=== PATIENT | female | born 1965 | race African-American/Black ===

== ENCOUNTER 2020-04-11 12:50 | Emergency (ER) | payer MEDICAID, MEDICARE ==
--- NOTE | 2020-04-11 13:20 | ER Document Report ---
ED Medical Screen (RME) - General Chief Complaint: Weakness Stated Complaint: WEAKNESS/NEEDS DIALYSIS Time Seen by Provider: 04/11/20 13:15 Primary Care Provider: TEZ BLAKE MD [Primary Care Provider] - Follow up as needed Mode of Arrival: Wheelchair Information source: Patient Notes: 54-year-old female presented to ED for need for dialysis. She states she is from [place] she had her dialysis on Tuesday had a family emergency can get here Tuesday night. She states she had a dialysis center she was supposed to go to but they told her that they cannot take before Tuesday. She states she feels horrible right now she knows she cannot go to Tuesday before she gets another dialysis treatment. She states she is been on dialysis for 18 years. She is alert oriented respirations regular nonlabored. She states she does not want semi-testicular and less they know what they are doing because she does normally be stuck multiple times to get blood work. I have greeted and performed a rapid initial assessment of this patient. A comprehensive ED assessment and evaluation of the patient, analysis of test results and completion of medical decision making process will be conducted by an additional ED providers. TRAVEL OUTSIDE OF THE [place] 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, Hx Hemodialysis Musculoskeltal Medical History: Reports Hx Arthritis Psychiatric Medical History: Reports: Hx Depression Past Surgical History: Reports: Hx Abdominal Surgery, Hx Orthopedic Surgery, Hx Vascular Surgery - fistula - Immunizations Hx Diphtheria, Pertussis, Tetanus Vaccination: Yes Physical Exam - Vital signs Vitals: Temp Pulse Resp BP Pulse Ox 98.8 F 94 20 174/96 H 92 04/11/20 12:58 04/11/20 12:58 04/11/20 12:58 04/11/20 12:58 04/11/20 12:58 Course - Vital Signs Vital signs: Temp Pulse Resp BP Pulse Ox 98.8 F 94 20 174/96 H 92 04/11/20 12:58 04/11/20 12:58 04/11/20 12:58 04/11/20 12:58 04/11/20 12:58 Doctor's Discharge - Discharge Referrals: TEZ BLAKE MD [Primary Care Provider] - Follow up as needed
[2020-04-11 14:04] LABS: ABSOLUTE EOSINOPHILS # (AUTO) 0.3 10^3/uL (0.0-0.6); ABSOLUTE LYMPHOCYTES (AUTO) 0.6 10^3/uL (0.5-4.7); ABSOLUTE MONOCYTES (AUTO) 0.6 10^3/uL (0.1-1.4); ABSOLUTE NEUT (AUTO) 5.6 10^3/uL (1.7-8.2); BASOPHILS % (AUTO) 0.5 % (0-2); EOSINOPHILS % (AUTO) 4.1 % (0-6); HEMATOCRIT 25.8 % (36.0-47.0); HEMOGLOBIN 8.9 g/dL (12.0-15.5); LYMPHOCYTES % (AUTO) 8.2 % (13-45); MEAN CORPUSCULAR HEMOGLOBIN 31.5 pg (27.0-33.4); MEAN CORPUSCULAR HGB CONC 34.5 g/dL (32.0-36.0); MEAN CORPUSCULAR VOLUME 91 fl (80-97); MONOCYTES % (AUTO) 8.6 % (3-13); PLATELET COUNT 184 10^3/uL (150-450); RED BLOOD COUNT 2.83 10^6/uL (3.72-5.28); RED CELL DISTRIBUTION WIDTH 16.8 % (11.5-14.0); SEGMENTED NEUTROPHILS % (AUTO) 78.6 % (42-78); TOTAL CELLS COUNTED % (AUTO) 100 %; WHITE BLOOD COUNT 7.2 10^3/uL (4.0-10.5)
[2020-04-11 14:23] LABS: ALBUMIN 4.2 g/dL (3.5-5.0); ALKALINE PHOSPHATASE 95 U/L (38-126); ANION GAP 14 (5-19); ASPARTATE AMINO TRANSFERASE 16 U/L (14-36); BILIRUBIN,DIRECT 0.5 mg/dL (0.0-0.4); BLOOD UREA NITROGEN 35 mg/dL (7-20); CALCIUM 9.7 mg/dL (8.4-10.2); CARBON DIOXIDE 24 mmol/L (22-30); CHLORIDE 98 mmol/L (98-107); GLUCOSE 101 mg/dL (75-110); POTASSIUM 4.5 mmol/L (3.6-5.0); TOTAL PROTEIN 7.6 g/dL (6.3-8.2)
--- NOTE | 2020-04-11 17:34 | ER Document Report ---
Entered by SIDRA ZAPATA SCRIBE 04/11/20 [id number] Acting as scribe for:ERON CALLOWAY MD ED General - General Chief Complaint: Medical Complaint Stated Complaint: WEAKNESS/NEEDS DIALYSIS Time Seen by Provider: 04/11/20 13:15 Mode of Arrival: Wheelchair Information source: Patient Notes: This 54 year old female patient presents to the emergency department today reque sting to be dialyzed. She reports that she is a M/W/F dialysis patient and she lives in [place], [place], traveling here Tuesday after dialysis for a family emergency. Patient states that her daughter had a CVA and [place] so she came down here to help her. She did not set up dialysis prior to coming down here. She states she has "felt awful since she woke up", stating she has had nausea/vomiting. Patient was asked about how many times she has vomited today and she states "I dont think it matters right now". Patient was uncooperative so obtaining history is difficult. The patient does state that she cannot lay down flat without feeling extremely short of breath. TRAVEL OUTSIDE OF THE [place] IN LAST 30 DAYS: No - Related Data Allergies/Adverse Reactions: acetaminophen [From Percocet] Allergy (Verified 04/11/20 15:46) cefazolin Allergy (Verified 04/11/20 15:44) codeine Allergy (Verified 04/11/20 15:46) morphine Allergy (Verified 04/11/20 15:45) oxycodone [From Percocet] Allergy (Verified 04/11/20 15:46) Penicillins Allergy (Verified 04/11/20 15:45) Past Medical History - General Information source: Patient - Social History Smoking Status: Current Every Day Smoker Family History: Other - mother with epilepsy Patient has homicidal ideation: No - Past Medical History Cardiac Medical History: Reports: Hx DVT - remains on coumadin, Hx Heart Attack, Hx Hypertension Denies: Hx Coronary Artery Disease Pulmonary Medical History: Reports: Hx Asthma Denies: Hx Bronchitis, Hx COPD, Hx Pneumonia Neurological Medical History: Reports: Hx Seizures - DUE TO MEDICATIONS. 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, Hx Hemodialysis Musculoskeletal Medical History: Reports Hx Arthritis Psychiatric Medical History: Reports: Hx Depression Past Surgical History: Reports: Hx Abdominal Surgery, Hx Orthopedic Surgery, Hx Vascular Surgery - fistula - Immunizations Hx Diphtheria, Pertussis, Tetanus Vaccination: Yes Hx Pneumococcal Vaccination: 10/07/15 Physical Exam - Vital signs Vitals: Temp Pulse Resp BP Pulse Ox 98.8 F 94 20 174/96 H 92 04/11/20 12:58 04/11/20 12:58 04/11/20 12:58 04/11/20 12:58 04/11/20 12:58 Interpretation: Hypertensive - HEENT Head: Normocephalic, Atraumatic Eyes: Normal Pupils: PERRL - Respiratory Respiratory status: No respiratory distress Breath sounds: Other - Breath sounds are slightly decreased in the bases, there were some crackles heard on inspiration. - Cardiovascular Rhythm: Regular Heart sounds: Normal auscultation Murmur: No - Abdominal Inspection: Normal Bowel sounds: Normal - Back Back: Normal - Extremities General upper extremity: Normal inspection General lower extremity: Normal inspection. No: Edema - Neurological Neuro grossly intact: Yes - Psychological Associated symptoms: Normal affect, Normal mood - Skin Skin Temperature: Warm Skin Moisture: Dry Skin Color: Normal Course - Re-evaluation Re-evalutation: 04/11/20 17:24 The patient is a Tuesday dialysis patient. She dialyzed on Tuesday. That evening she left [place] to come to [place]. She did not make arrangements with the staff at her dialysis center before leaving [facility]. She states she made some phone calls to them and left it up to them to figure out how she would get her dialysis today. While here in the emergency room, our charge nurse called [facility] and spoke with a nurse there. The nurse there stated she was aware that [facility] not taking [id number] patients. She spoke with [facility] in [place] and was told the patient possibly could be dialyzed on Tuesday, but there was no guarantee that she could be. The patient stated she did speak to [facility] the dialysis nurse who told her to come to the emergency room. The patient's potassium is 4.5 today, she does not have an elevated white blood cell count suggesting an infectious problem. She does not make urine. I spoke with Dr. Patino who tells me that based on the lab work the patient does not need dialysis at this time. Our facility is unable to provide dialysis services over the weekend. The patient should have made arrangements for dialysis before coming down here. Beyond that she could not provide me with any other options. 04/11/20 17:33 I called [facility], they have no beds and their emergency department is full. 04/11/20 18:26 I called [facility], they are on regional diversion and cannot accept the patient. 04/11/20 18:34 I called [facility] and was told they are on regional diversion. They are going to see if she may be able to go to their [facility] in [place], [place]. They will get back in touch with me. 04/11/20 19:12 Dr. O[facility]co [facility] called [facility] and accepted the patient in transfer. - Vital Signs Vital signs: Temp Pulse Resp BP Pulse Ox 98.8 F 94 22 H 158/113 H 100 04/11/20 12:58 04/11/20 12:58 04/11/20 20:44 04/11/20 20:43 04/11/20 20:44 - Laboratory Result Diagrams: 04/11/20 13:27 04/11/20 13:27 Laboratory results interpreted by me: 04/11/20 04/11/20 13:27 13:27 RBC 2.83 L Hgb 8.9 L Hct 25.8 L RDW 16.8 H Lymph % (Auto) 8.2 L Seg Neutrophils % 78.6 H Sodium 136.3 L BUN 35 H Creatinine 8.62 H Est GFR ( Amer) 6 L Est GFR (MDRD) Non-Af 5 L Direct Bilirubin 0.5 H - Diagnostic Test Radiology reviewed: Image reviewed, Reports reviewed - Chest x-ray shows bilateral pleural effusions. Cannot exclude limited airspace disease in the left base. - EKG Interpretation by Me EKG shows normal: Sinus rhythm, Dowell, Intervals, ST-T Waves. abnormal: QRS Complexes - Borderline R wave progression in the anterior leads Rate: Normal - 82 Rhythm: NSR Dowell/QRS: IVCD Heart block present: 1st Degree When compared to previous EKG there are: No significant change - Transfer of Care Care transferred to following provider: Dr. Gifford Notes: 04/11/20 20:47 Patient is pending [facility] to [facility] [place], [place]. Discharge - Discharge Clinical Impression: ESRD (end stage renal disease), Pleural effusion, Missed dialysis Condition: Stable Disposition: Tertiary-Other I personally performed the services described in the documentation, reviewed and edited the documentation which was dictated to the scribe in my presence, and it accurately records my words and actions.
--- NOTE | 2020-04-11 18:28 | RADIOLOGY REPORT (SQ) ---
EXAM DESCRIPTION: CHEST 2 VIEWS IMAGES COMPLETED DATE/TIME: 04/11/2020 6:19 pm REASON FOR STUDY: Dialysis patient, short of breath COMPARISON: 2016 EXAM PARAMETERS: NUMBER OF VIEWS: two views TECHNIQUE: Digital Frontal and Lateral radiographic views of the chest acquired. RADIATION DOSE: NA LIMITATIONS: none FINDINGS: LUNGS AND PLEURA: Moderate right pleural effusion. Small left pleural effusion. There is retrocardiac opacification on the left MEDIASTINUM AND HILAR STRUCTURES: No masses or contour abnormalities. HEART AND VASCULAR STRUCTURES: Heart normal size. No evidence for failure. BONES: No acute findings. HARDWARE: None in the chest. OTHER: No other significant finding. IMPRESSION: Bilateral pleural effusions as described. Cannot exclude limited airspace disease in th e left base, atelectasis versus pneumonia. TECHNICAL DOCUMENTATION: JOB ID: [id number] 2010 [employer]- All Rights Reserved Reading location - IP/workstation name: [email or web address]
[2020-04-11 22:02] VITALS: BP 143/82
--- NOTE | 2020-04-12 09:54 | EKG REPORT ---
SEVERITY:- ABNORMAL ECG - SINUS RHYTHM FIRST DEGREE AV BLOCK NONSPECIFIC IVCD WITH LAD BORDERLINE R WAVE PROGRESSION, ANTERIOR LEADS : Confirmed by: Pretty Ruff 12-Apr-2020 09:54:00
== END 2020-04-11 22:18 | disposition short-term general hospital (02) ==
LOC: ER 12:50
DX: I12.0 Hypertensive chronic kidney disease with stage 5 chronic kidney disease or end stage renal disease (principal); N18.6 End stage renal disease; Z99.2 Dependence on renal dialysis; Z91.15 Patient's noncompliance with renal dialysis; R11.2 Nausea with vomiting, unspecified; I44.0 Atrioventricular block, first degree; F17.200 Nicotine dependence, unspecified, uncomplicated; I25.2 Old myocardial infarction; J45.909 Unspecified asthma, uncomplicated; Q63.1 Lobulated, fused and horseshoe kidney; Z88.8 Allergy status to other drugs, medicaments and biological substances; Z88.6 Allergy status to analgesic agent; Z88.5 Allergy status to narcotic agent; Z88.0 Allergy status to penicillin; Z88.1 Allergy status to other antibiotic agents
CPT/HCPCS: 36415; 71046; 80053; 82550; 84484; 85025; 93005; 93010; 99285

== ENCOUNTER 2020-05-04 19:53 | Inpatient (IN) | payer MEDICARE ==
[2020-05-04 20:14] LABS: ABSOLUTE BASOPHILS # (AUTO) 0.1 10^3/uL (0.0-0.2); ABSOLUTE MONOCYTES (AUTO) 0.9 10^3/uL (0.1-1.4); BASOPHILS % (AUTO) 0.6 % (0-2); EOSINOPHILS % (AUTO) 0.1 % (0-6); HEMATOCRIT 27.5 % (36.0-47.0); HEMOGLOBIN 9.1 g/dL (12.0-15.5); LYMPHOCYTES % (AUTO) 9.6 % (13-45); MEAN CORPUSCULAR HEMOGLOBIN 30.9 pg (27.0-33.4); MEAN CORPUSCULAR VOLUME 94 fl (80-97); PLATELET COUNT 308 10^3/uL (150-450); RED BLOOD COUNT 2.94 10^6/uL (3.72-5.28); RED CELL DISTRIBUTION WIDTH 17.4 % (11.5-14.0); SEGMENTED NEUTROPHILS % (AUTO) 80.7 % (42-78); TOTAL CELLS COUNTED % (AUTO) 100 %; WHITE BLOOD COUNT 9.9 10^3/uL (4.0-10.5)
--- NOTE | 2020-05-04 20:15 | ER Document Report ---
ED General - General Chief Complaint: Shortness Of Breath Stated Complaint: SHORTNESS OF BREATH Time Seen by Provider: 05/04/20 20:12 TRAVEL OUTSIDE OF THE [place].S. IN LAST 30 DAYS: No - HPI Pain Level: Denies Context: This is a 54-year-old female with a history of end-stage renal disease, on dialysis Tuesday and Tuesday, also with a history of tobacco abuse presenting to the emergency department complaining of acute shortness of breath. Patient states that her shortness of breath started this morning and has been going on all day. Patient denies chest pain, fever, chills. Patient states that she has been compliant with her dialysis schedule which is Tuesday and states that her last treatment was on 05/02/2020 which was 2 days ago. Patient states that she is trying to quit smoking and only smokes 1 cigarette a day. Patient states that she is here from [place] visiting her daughter. Patient states that the breathing treatment given to her in route by EMS helped her symptoms and any type of exertion exacerbates her shortness of breath. Patient denies loss of sense of taste or loss of sense of smell, also denies known exposure to COVID-19 positive persons or persons under investigation for COVID-19. Patient herself was tested approximately 3 weeks ago for Covid, results of test were negative. Patient states she is anuric and has been on dialysis for approximately 18 years. Associated symptoms: Other - See HPI Exacerbated by: Other - See HPI Relieved by: Other - See HPI - Related Data Allergies/Adverse Reactions: acetaminophen [From Percocet] Allergy (Verified 04/11/20 15:46) cefazolin Allergy (Verified 04/11/20 15:44) codeine Allergy (Verified 04/11/20 15:46) morphine Allergy (Verified 04/11/20 15:45) oxycodone [From Percocet] Allergy (Verified 04/11/20 15:46) Penicillins Allergy (Verified 04/11/20 15:45) Past Medical History - General Information source: Patient - Social History Smoking Status: Current Every Day Smoker Cigarette use (# per day): Yes - Patient states she smokes 1 cigarette a day Smoking Education Provided: Yes Drug Abuse: None Family History: Reviewed & Not Pertinent, Other - mother with epilepsy - Past Medical History Cardiac Medical History: Reports: Hx DVT - remains on coumadin, Hx Heart Attack, Hx Hypertension Denies: Hx Coronary Artery Disease Pulmonary Medical History: Reports: Hx Asthma Denies: Hx Bronchitis, Hx COPD, Hx Pneumonia Neurological Medical History: Reports: Hx Seizures - DUE TO MEDICATIONS. 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 denies: Chills, Fever EENT: No symptoms reported Cardiovascular: No symptoms reported. denies: Chest pain Respiratory: Short of breath. denies: Hemoptysis Gastrointestinal: No symptoms reported Genitourinary: No symptoms reported Female Genitourinary: No symptoms reported Musculoskeletal: No symptoms reported Skin: No symptoms reported Hematologic/Lymphatic: No symptoms reported Neurological/Psychological: No symptoms reported -: Yes All other systems reviewed and negative Physical Exam - Vital signs Vitals: Resp Pulse Ox 35 H 100 05/04/20 19:53 05/04/20 19:53 - Notes Notes: CONSTITUTIONAL [Vital signs reviewed, Patient appears to have increased work of breathing but does not appear to be in extremis, Alert and oriented X 3, patient has been placed on BiPAP and seems to be tolerating it well] HEAD [Atraumatic, Normocephalic.] EYES [Eyes are normal to inspection, No discharge from eyes, Extraocular muscles intact, Sclera are normal, Conjunctiva are normal.] ENT [External ears normal to inspection, Nose examination normal, Mouth normal to inspection.] NECK [Normal ROM, No meningeal signs RESPIRATORY CHEST [Chest is nontender, patient has scant rhonchi bilateral lung bases and does have some expiratory wheezing noted in her left upper lung field. Patient is tachypneic but does not appear to be in significant respiratory distress at this time] CARDIOVASCULAR [Tachycardia, No murmurs, Normal S1 S2, No rub, No gallop.] ABDOMEN [Abdomen is nontender, No pulsatile masses, No other masses, Bowel sounds normal, No distension, No peritoneal signs, No hernias.] BACK [There is no CVA Tenderness, There is no tenderness to palpation, Normal inspection.] UPPER EXTREMITY Patient has a AV shunt in her left upper extremity. Palpable thrill and audible bruit present. no cyanosis, No clubbing, No edema, 2+ radial pulses.] LOWER EXTREMITY [Inspection normal, No cyanosis, No clubbing, No edema, No calf tenderness, 2+ femoral pulses.] NEURO [No focal motor deficits, No focal sensory deficits, Speech normal.] SKIN [Skin is warm, Skin is dry, Skin is normal color.] PSYCHIATRIC [Normal affect. ] Course - Vital Signs Vital signs: Temp Pulse Resp BP Pulse Ox 20 142/84 H 100 05/05/20 00:15 05/05/20 00:02 05/05/20 00:15 - Laboratory Result Diagrams: 05/04/20 19:59 05/04/20 19:59 Laboratory results interpreted by me: 05/04/20 05/04/20 19:59 19:59 RBC 2.94 L Hgb 9.1 L Hct 27.5 L RDW 17.4 H Lymph % (Auto) 9.6 L Seg Neutrophils % 80.7 H Chloride 97 L BUN 50 H Creatinine 8.36 H Est GFR ( Amer) 6 L Est GFR (MDRD) Non-Af 5 L Glucose 112 H Direct Bilirubin 0.6 H Total Protein 8.3 H - EKG Interpretation by Me Additional EKG results interpreted by me: 05/04/20 21:03 EKG obtained on 05/04/2020 at 2008 hrs. was interpreted by this MD. Findings right 107, ventricular paced rhythm, nonspecific and true ventricular conduction delay is present, QTC is 486, there are no obvious patterns of ST segment elevation, depression or reciprocal changes seen to suggest acute myocardial ischemia or infarction. When compared with previous EKG from 04/11/2020 there do not appear to be any significant changes between the 2 EKGs. Impression: Tachycardia with a ventricular paced rhythm, LAD and IVCD as well as nonspecific ST segments. - Consults Time consulted: 23:17 Reason for consultation: 05/04/20 23:53 pulmonary edema and hypoxia, improved on Bipap Consulted provider: will come to ER Critical Care Note - Critical Care Note Total time excluding time spent on procedures (mins): 120 - management of pulmonary edema with hypoxia Discharge - Discharge Clinical Impression: ESRD (end stage renal disease), Hypoxia Pulmonary edema Qualifiers: Chronicity: acute Qualified Code(s): J81.0 - Acute pulmonary edema Dyspnea Qualifiers: Dyspnea type: unspecified Qualified Code(s): R06.00 - Dyspnea, unspecified Condition: Stable Disposition: ADMITTED OBSERVATION Admitting Provider: hospitalist: Dr. Dobbins Unit Admitted: [facility]
[2020-05-04 20:29] LABS: ALBUMIN 4.7 g/dL (3.5-5.0); ALKALINE PHOSPHATASE 91 U/L (38-126); ANION GAP 16 (5-19); ASPARTATE AMINO TRANSFERASE 18 U/L (14-36); BILIRUBIN,DIRECT 0.6 mg/dL (0.0-0.4); BILIRUBIN,TOTAL 0.8 mg/dL (0.2-1.3); BLOOD UREA NITROGEN 50 mg/dL (7-20); CALCIUM 9.5 mg/dL (8.4-10.2); CARBON DIOXIDE 25 mmol/L (22-30); CHLORIDE 97 mmol/L (98-107); GLUCOSE 112 mg/dL (75-110); POTASSIUM 4.3 mmol/L (3.6-5.0); TOTAL PROTEIN 8.3 g/dL (6.3-8.2)
[2020-05-04] MEDS ORDERED: IPRATROPIUM/ALBUTEROL 0.5-2.5 MG/3 ML AMPUL NEB ONE (20:35)
[2020-05-04] MEDS ORDERED: METHYLPREDNISOLONE INJ 125 MG/2 ML SDV IV ONE (20:46)
--- NOTE | 2020-05-04 21:19 | RADIOLOGY REPORT (SQ) ---
XR CHEST 1 VIEW HISTORY: Shortness of breath. COMPARISON: 10/07/2015 FINDINGS: The heart size is enlarged. There are moderate-sized bilateral pleural effusions with adjacent airspace disease. No pneumothorax is seen. Vascular stents overlie the superior mediastinum. No acute bony findings. IMPRESSION: Cardiogenic pulmonary edema with bilateral pleural effusions and adjacent airspace disease.
[2020-05-05] MEDS ORDERED: ONDANSETRON HCL INJ/PF 4 MG/2 ML SDV IV PRN (00:50)
[2020-05-05] MEDS ORDERED: IPRATROPIUM/ALBUTEROL 0.5-2.5 MG/3 ML AMPUL NEB PRN (00:55)
--- NOTE | 2020-05-05 01:00 | PDOC H&P ---
History of Present Illness Patient complains of: Shortness of breath History of Present Illness: MAREN FERRO is a 54 year old female with a history of ESRD on HD Tuesday and Tuesday, COPD on 2 L/min home oxygen, hypertension, A. fib on anticoagulation and tobacco dependence presents with shortness of breath which started this morning. She states that the shortness of breath started after she woke up this morning and progressively worsened throughout the day. She states that she is compliant with her dialysis schedule and her last session was Tuesday. She states that she is anuric. She denies cough, chest pain, fever, chills, runny nose, nausea, vomiting, diarrhea or any recent sick contact histo ry. On arrival at the ER patient's oxygen saturation was 84% while on 3 L oxygen and she was immediately placed on BiPAP and is currently saturating 100% on FiO2 of 70%. Attempt was done to titrate down FiO2 and transition to intranasal oxygen but her saturation dropped again and she was placed back on BiPAP. She is alert and oriented with no signs of uremia and electrolytes are within the normal limits with a potassium of 4.3. She will be admitted to MICU on a BiPAP with closer monitoring of air oxygen saturation until she gets dialysis tomorrow morning. 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 Musculoskeltal Medical History: Reports: Arthritis Psychiatric Medical History: Reports: Depression Hematology: Reports: Anemia Past Surgical History Past Surgical History: Reports: Orthopedic Surgery, Vascular Surgery - fistula Social History Information Source: Patient Lives with: Family Smoking Status: Current Every Day Smoker Frequency of Alcohol Use: Occasional Hx Recreational Drug Use: No Drugs: None Hx Prescription Drug Abuse: No - Advance Directive Resuscitation Status: Full Code Family History Family History: Reviewed & Not Pertinent, Other - mother with epilepsy Parental Family History Reviewed: Yes Children Family History Reviewed: Yes Sibling(s) Family History Reviewed.: Yes Medication/Allergy Home Medications: Isosorbide Mononitrate [Imdur 30 mg Tablet.er] 30 mg PO DAILY 04/08/15 Metoprolol Tartrate [Lopressor] 50 mg PO SUTUTHSA@10,22 07/21/15 Albuterol Sulfate [Proair HFA] 2 puff IH Q4HP PRN 10/07/15 Apixaban [Eliquis 2.5 mg Tablet] 2.5 mg PO BID 04/11/20 Calcium Acetate [Phoslo 667 mg Capsule] 1,334 mg PO MEALS 04/11/20 Diltiazem HCl [Diltiazem ER] 180 mg PO Q12 04/11/20 Gabapentin [Neurontin 300 mg Capsule] 300 mg PO QHS 04/11/20 Hydromorphone HCl [Dilaudid 2 mg Tablet] 2 mg PO Q12 04/11/20 Lidocaine [Lidoderm 5% (700 mg) Transdermal Patch] 1 patch TP DAILY 04/11/20 Quetiapine Fumarate [Seroquel 25 mg Tablet] 25 mg PO QHS 04/11/20 Allergies/Adverse Reactions: acetaminophen [From Percocet] Allergy (Verified 04/11/20 15:46) cefazolin Allergy (Verified 04/11/20 15:44) codeine Allergy (Verified 04/11/20 15:46) morphine Allergy (Verified 04/11/20 15:45) oxycodone [From Percocet] Allergy (Verified 04/11/20 15:46) Penicillins Allergy (Verified 04/11/20 15:45) Review of Systems Constitutional: PRESENT: as per HPI Eyes: ABSENT: visual disturbances Ears: ABSENT: hearing changes Nose, Mouth, and Throat: ABSENT: as per HPI, headache(s), mouth pain, sore throat, vertigo, other Cardiovascular: PRESENT: as per HPI Respiratory: PRESENT: as per HPI Gastrointestinal: ABSENT: abdominal pain, constipation, diarrhea, hematemesis, hematochezia, nausea, vomiting Genitourinary: ABSENT: dysuria, hematuria Musculoskeletal: ABSENT: joint swelling Integumentary: ABSENT: rash, wounds Neurological: ABSENT: abnormal speech, confusion, dizziness, focal weakness, syncope Psychiatric: ABSENT: anxiety, depression, homidical ideation, suicidal ideation Endocrine: ABSENT: cold intolerance, heat intolerance, polydipsia, polyuria Hematologic/Lymphatic: ABSENT: easy bleeding, easy bruising Physical Exam Vital Signs: Temp Pulse Resp BP Pulse Ox 20 142/84 H 100 05/05/20 00:15 05/05/20 00:02 05/05/20 00:15 Intake & Output 05/03/20 05/04/20 05/05/20 06:59 06:59 06:59 Weight 77.5 kg Additional comments: GENERAL APPEARANCE: Alert and oriented x3, in acute respiratory distress using accessory muscles HEENT: Normocephalic and atraumatic. No scleral icterus. Dry oral mucosa NECK: Supple. No lymphadenopathy or tenderness. Has elevated JVD CHEST: Symmetric. Nontender to palpation. LUNGS: Has diffuse crackles bilaterally. There is decreased air entry on posterior lower lung lund HEART: Regular rate and rhythm with normal S1 and S2. No murmurs, gallops, or rubs. ABDOMEN: soft, active bowel sounds, no direct or rebound tenderness. No organomegaly detected. EXTREMITIES: No cyanosis, clubbing, or edema. MUSCULOSKELETAL: No deformity, atrophy or swelling noted PSYCHIATRIC: Recent and remote memory is intact. Appropriate mood and affect. SKIN: Warm, dry, and well perfused. No lesions or rashes are noted. NEUROLOGIC: No focal sensory or motor deficits are noted. Results Laboratory Results: 05/04/20 19:59 05/04/20 19:59 05/04/20 05/04/20 19:59 19:59 WBC 9.9 RBC 2.94 L Hgb 9.1 L Hct 27.5 L MCV 94 MCH 30.9 MCHC 33.0 RDW 17.4 H Plt Count 308 Seg Neutrophils % 80.7 H Sodium 138.2 Potassium 4.3 Chloride 97 L Carbon Dioxide 25 Anion Gap 16 BUN 50 H Creatinine 8.36 H Est GFR ( Amer) 6 L Glucose 112 H Calcium 9.5 Total Bilirubin 0.8 AST 18 Alkaline Phosphatase 91 Total Protein 8.3 H Albumin 4.7 05/04/20 19:59 Troponin I 0.051 Impressions: Chest X-Ray 05/04/20 20:01 IMPRESSION: Cardiogenic pulmonary edema with bilateral pleural effusions and adjacent airspace disease. Assessment and Plan - Diagnosis (1) Acute and chronic respiratory failure with hypoxia Is this a current diagnosis for this admission?: Yes Plan: Patient presents with shortness of breath O2 saturation on presentation 84% on 3 L oxygen Likely due to pulmonary vascular congestion from end-stage renal disease Currently patient doing well on BiPAP Continue breathing treatment with DuoNeb Will consult note nephrology in the morning and undergo hemodialysis (2) Acute pulmonary edema Is this a current diagnosis for this admission?: Yes Plan: Due to end-stage renal disease Chest x-ray shows pulmonary edema with bilateral effusion Patient to undergo hemodialysis tomorrow morning (3) ESRD (end stage renal disease) Is this a current diagnosis for this admission?: Yes Plan: On HD every Tuesday, Tuesday and Tuesday Now admitted with respiratory failure due to volume overload Potassium is 4.3 on presentation Has mild anion gap metabolic acidosis Continue dialysis per schedule and outpatient nephrology follow-up (4) COPD (chronic obstructive pulmonary disease) Is this a current diagnosis for this admission?: Yes Plan: Patient has not noticed a change in her chronic cough or sputum production No wheezing on physical exam Currently appears not in acute exacerbation Continue DuoNeb every 4 hourly as needed Currently on BiPAP and will transition to intranasal oxygen after dialysis (5) Atrial fibrillation Is this a current diagnosis for this admission?: Yes Plan: Currently rate controlled and in sinus rhythm Continue metoprolol, diltiazem for rate control Continued Eliquis (6) Hypertension Qualifiers: Hypertension type: secondary to other renal disorders Is this a current diagnosis for this admission?: Yes Plan: Continued patient's home medications - Time Time Spent with patient: 35 or more minutes Total Critical Time (Minutes): 50 Smoking Cessation Education: 3 to 10 minutes Medications reviewed and adjusted accordingly: Yes Anticipated Discharge Disposition: Home, Self Care Anticipated Discharge Timeframe: within 48 hours - Inpatient Certification Based on my medical assessment, after consideration of the patient's comorbidities, presenting symptoms, or acuity I expect that the services needed warrant INPATIENT care.: Yes I certify that my determination is in accordance with my understanding of Medicare's requirements for reasonable and necessary INPATIENT services [42 CFR 412.3e].: Yes Medical Necessity: Significant Comorbidiites Make Outpatient Treatment Too Risky, Need Close Monitoring Due to Risk of Patient Decompensation, Risk of Comp lication if Not Cared For in Hospital Post Hospital Care: D/C or Transfer Summary
--- NOTE | 2020-05-05 05:25 | EKG REPORT ---
SEVERITY:- ABNORMAL ECG - SINUS TACHYCARDIA NONSPECIFIC IVCD WITH LAD : Confirmed by: Kip Benitez MD 05-May-2020 05:25:17
[2020-05-05 07:05] LABS: BLOOD UREA NITROGEN 54 mg/dL (7-20); CALCIUM 9.1 mg/dL (8.4-10.2); CARBON DIOXIDE 23 mmol/L (22-30); GLUCOSE 229 mg/dL (75-110); POTASSIUM 4.2 mmol/L (3.6-5.0)
[2020-05-05 07:12] LABS: CHLORIDE 95 mmol/L (98-107)
[2020-05-05 07:14] LABS: ANION GAP 21 (5-19)
[2020-05-05] MEDS: ISOSORBIDE MONONITRATE 30 MG TAB.ER.24H PO SCH (09:02)
[2020-05-05] MEDS: APIXABAN 2.5 MG TABLET PO SCH ×2 (09:03→21:40)
[2020-05-05] MEDS: DILTIAZEM HCL 180 MG CAPSULE.CR PO SCH ×2 (09:03→21:41)
[2020-05-05] MEDS: CALCIUM ACETATE 667 MG CAPSULE PO SCH ×3 (09:03→17:46)
[2020-05-05] MEDS: HYDROXYZINE PAMOATE 25 MG CAPSULE PO PRN ×2 (09:03→18:19)
[2020-05-05] MEDS ORDERED: EPOETIN ALFA-EPBX 10,000 UNIT in SYRINGE, DISPOSABLE, 1 EACH IV PRN (09:36)
[2020-05-05] MEDS ORDERED: NORMAL SALINE 1000 ML 1,000 ML IV PRN (09:36)
[2020-05-05] MEDS ORDERED: FAMOTIDINE 20 MG TABLET PO SCH (10:00)
[2020-05-05] MEDS ORDERED: DIPHENHYDRAMINE HCL 25 MG CAPSULE PO ONE (14:20)
[2020-05-05] MEDS: HYDROMORPHONE HCL INJ/PF 2 MG/ML AMPULE IV ONE ×2 (14:50→17:53)
[2020-05-05] MEDS ORDERED: DIPHENHYDRAMINE HCL 50 MG/ML VIAL IV ONE (14:50)
--- NOTE | 2020-05-05 14:54 | Progress Note ---
Provider Note Provider Note: Patient is a 54-year-old female with a past medical history of ESRD (on hemodialysis MWF; does not make urine) MA, hypertension, COPD, chronic respiratory failure on home O2, seizures, arthritis, depression, and obesity who was admitted early this morning by the alternative financing specialist for Acute on chronic respiratory failure with hypoxia secondary to acute pulmonary edema related to fluid volume overload. Overnight events, nursing notes, vital signs, laboratory results, imaging, H&P, and orders reviewed. Patient was briefly visited on morning rounds. She was found resting in bed, comfortably, on biPAP. States she is awaiting dialysis as she is certain she will breath easier afterward. Denies known inciting events/sick contacts. Agree with plan of care as previously established. In addition: Confirmed that patient will receive dialysis this afternoon. Have resumed patient's home medication regimen. Provided one time dose of IV dilaudid; patient's nml pain medication regimen will resume this evening following dialysis. Encourage pulmonary toilet w/ incentive spirometer and flutter valve.
--- NOTE | 2020-05-05 16:56 | PDOC CONSULTATION ---
Consultation Consult Date: 05/05/20 Provider Consulted: YAA DEWEY Consult reason:: Acute Pulmonary Edema/ESRD History of Present Illness Admission Date/PCP: 05/05/20 01:10 History of Present Illness: MAREN FERRO is a 54 year old -[place] female with history of ESRD on hemodialysis on MWF, hypertension, coronary artery disease, COPD on home oxygen, atrial fibrillation who presented in the emergency room via EMS last night due to acute onset of shortness of breath. She was noted to have oxygen saturation of 84% on 3 L of oxygen via nasal cannula in the ED so she was placed on BiPAP. Her initial x-ray showed cardiogenic pulmonary edema with bilateral pleural effusions and adjacent airspace disease. She was tested for COVID-19 which is still pending so currently she was admitted in isolation pending results. Patient states that the shortness of breath just came sad only. She denies any chest pains. She has her chronic cough which was unchanged. She denies any fever, nausea, vomiting or diarrhea. Her last dialysis was last Tuesday as a scheduled. At this time I am seeing the patient during dialysis in the isolation room due to Covid. She was complaining of itching initially and states that she usually gets Benadryl so we did give her Benadryl 25 mg IV x1 dose. She is still currently on BiPAP but seems to be comfortably laying down and receiving dial ysis. She is communicative. She is also hemodynamically stable. We have again had tried to get an ultrafiltration of 3 to 4 L per the patient adamantly insists that he only get 3 L of ultrafiltration because she is cramping. Currently she is stable. 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, history of glomerulonephritis but not biopsy-proven, Hypocalcemia, Secondary Hyperparathyroidism GI Medical History: Reports: Gastroesophageal Reflux Disease Musculoskeltal Medical History: Reports: Arthritis, Other - Chronic back pain Psychiatric Medical History: Reports: Depression Hematology Medical History: Reports Anemia of Chronic Kidney Disease Past Surgical History Past Surgical History: Reports: Dialysis Access Surgery AVF - With pseudoaneurysm, Herniorrhaphy - Abdominal hernia, Orthopedic Surgery - Left knee, Thyroidectomy, Vascular Surgery - Previous PermCath placement, Other - Parathyroidectomy; exploratory laparotomy with colon resection/colostomy Social History Information Source: Patient, [facility] Records Lives with: Family - With daughter here in [place] Smoking Status: Current Every Day Smoker Number of Years Smokin Last Time Smoked: 05/04/2020 Frequency of Alcohol Use: Occasional Hx Recreational Drug Use: No Drugs: None Hx Prescription Drug Abuse: No - Advance Directive Resuscitation Status: Full Code Family History Family History: Chronic Kidney Disease - Mother, DM - Mother, Hypertension - Mother Parental Family History Reviewed: Yes Children Family History Reviewed: Yes Sibling(s) Family History Reviewed.: Yes Medication/Allergy Home Medications: Isosorbide Mononitrate [Imdur 30 mg Tablet.er] 30 mg PO DAILY 04/08/15 Metoprolol Tartrate [Lopressor] 50 mg PO SUTUTHSA@,07/21/15 Albuterol Sulfate [Proair HFA] 2 puff IH Q4HP PRN 10/07/15 Apixaban [Eliquis 2.5 mg Tablet] 2.5 mg PO BID 04/11/20 Calcium Acetate [Phoslo 667 mg Capsule] 1,334 mg PO MEALS 04/11/20 Diltiazem HCl [Diltiazem ER] 180 mg PO Q12 04/11/20 Gabapentin [Neurontin 300 mg Capsule] 300 mg PO Q12 04/11/20 Hydromorphone HCl [Dilaudid 2 mg Tablet] 2 mg PO Q12 04/11/20 Lidocaine [Lidoderm 5% (700 mg) Transdermal Patch] 1 patch TP DAILY 04/11/20 Quetiapine Fumarate [Seroquel 25 mg Tablet] 25 mg PO QHS 04/11/20 Clonidine HCl [Catapres 0.1 mg Tablet] 0.3 mg PO Q8 05/05/20 Ergocalciferol (Vitamin D2) [Drisdol 50,000 Unit (1.25MG) Capsule] 50,000 unit PO SA@1000 05/05/20 Hydroxyzine HCl [Atarax 10 mg Tablet] 25 mg PO TIDP PRN 05/05/20 Allergies/Adverse Reactions: acetaminophen [From Percocet] Allergy (Verified 04/11/20 15:46) cefazolin Allergy (Verified 04/11/20 15:44) codeine Allergy (Verified 04/11/20 15:46) morphine Allergy (Verified 04/11/20 15:45) oxycodone [From Percocet] Allergy (Verified 04/11/20 15:46) Penicillins Allergy (Verified 04/11/20 15:45) Review of Systems All systems: reviewed and no additional remarkable complaints except as stated Review of Systems: Constitutional: ABSENT: chills, fatigue, fever(s), headache(s), weight gain, weight loss Eyes: ABSENT: visual disturbances Ears: ABSENT: hearing changes Cardiovascular: ABSENT: chest pain, dyspnea on exertion, edema, orthropnea, palpitations Respiratory: ABSENT: Hemoptysis; reports acute shortness of breath and chronic cough Gastrointestinal: ABSENT: abdominal pain, constipation, diarrhea, hematemesis, hematochezia, nausea, vomiting Genitourinary: ABSENT: dysuria, hematuria Musculoskeletal: ABSENT: joint swelling Integumentary: ABSENT: rash, wounds Neurological: ABSENT: abnormal gait, abnormal speech, confusion, dizziness, focal weakness, numbness, syncope Psychiatric: ABSENT: anxiety, depression Endocrine: ABSENT: cold intolerance, heat intolerance, polydipsia, polyuria Hematologic/Lymphatic: ABSENT: easy bleeding, easy bruising, lymphadenopathy Physical Exam Vital Signs: Temp Pulse Resp BP Pulse Ox 97.2 F 128 H 22 H 168/89 H 98 05/05/20 12:18 05/05/20 12:18 05/05/20 12:18 05/05/20 12:18 05/05/20 12:18 Intake & Output 05/04/20 05/05/20 05/06/20 06:59 06:59 06:59 Weight 79.6 kg Vitals during dialysis: Blood pressure 154/97, heart rate of 87, blood flow rate of 400 mL/min and dialysate flow rate of 800 mL/min. Exam: General appearance: On BiPAP but comfortable, cooperative, well-developed, well- nourished Head exam: PRESENT: atraumatic, normocephalic Eye exam: PRESENT: Conjunctiva [place], EOMI, PERRLA. ABSENT: conjunctival injection, scleral icterus Mouth exam: PRESENT: moist, neck supple, tongue midline Neck exam: PRESENT: full ROM. ABSENT: carotid bruit, JVD, lymphadenopathy, thyromegaly Respiratory exam: PRESENT: Diminished to auscultation bilaterally. ABSENT: rales, rhonchi, stridor, wheezes Cardiovascular exam: PRESENT: RRR, +S1, +S2. Grade 2/6 systolic murmur Pulses: PRESENT: normal radial pulses, normal dorsalis pedis pulses GI/Abdominal exam: PRESENT: normal bowel sounds, soft. ABSENT: guarding, mass, tenderness Rectal exam: Deferred Extremities exam: PRESENT: full ROM. ABSENT: calf tenderness, pedal edema Musculoskeletal: PRESENT: full ROM. ABSENT: deformity Neurological exam: PRESENT: alert, Awake, Oriented to person, Oriented to place, Oriented to time, reflexes normal, CN II-XII grossly intact. ABSENT: motor sensory deficit Psychiatric exam: PRESENT: appropriate affect, normal mood. ABSENT: homicidal ideation, suicidal ideation Skin exam: PRESENT: intact, dry, warm. ABSENT: rash Results Laboratory Results: 05/04/20 19:59 05/05/20 05:24 05/04/20 05/04/20 05/05/20 19:59 19:59 05:24 WBC 9.9 RBC 2.94 L Hgb 9.1 L Hct 27.5 L MCV 94 MCH 30.9 MCHC 33.0 RDW 17.4 H Plt Count 308 Seg Neutrophils % 80.7 H Sodium 138.2 138.9 Potassium 4.3 4.2 Chloride 97 L 95 L Carbon Dioxide 25 23 Anion Gap 16 21 H BUN 50 H 54 H Creatinine 8.36 H 9.53 H Est GFR ( Amer) 6 L 5 L Glucose 112 H 229 H Calcium 9.5 9.1 Total Bilirubin 0.8 AST 18 Alkaline Phosphatase 91 Total Protein 8.3 H Albumin 4.7 05/04/20 05/05/20 19:59 05:24 Troponin I 0.051 0.078 Impressions: Chest X-Ray 05/04/20 20:01 IMPRESSION: Cardiogenic pulmonary edema with bilateral pleural effusions and adjacent airspace disease. Assessment & Plan - Diagnosis (1) Acute and chronic respiratory failure with hypoxia Is this a current diagnosis for this admission?: Yes Plan: Secondary to acute pulmonary edema in a patient with COPD on home oxygen. (2) Acute pulmonary edema Is this a current diagnosis for this admission?: Yes (3) ESRD (end stage renal disease) Is this a current diagnosis for this admission?: Yes Plan: We will do dialysis today for 3 hours, using the patient's AV fistula, with 2 potassium bath, blood flow rate of 20 400-450 mL per minute, dialysate flow rate of 800 mL per minute, ultrafiltration 3 to 4 L as tolerated if patient, no heparin and Procrit with 10,000 units during dialysis intravenously. Patient is being monitored throughout dialysis treatment. Due to pruritus, patient was given Benadryl 25 mg IV x1 dose. (4) Anemia in chronic kidney disease (CKD) Is this a current diagnosis for this admission?: Yes Plan: Retacrit during dialysis. (5) Hypertension Qualifiers: Hypertension type: secondary to other renal disorders Is this a current diagnosis for this admission?: Yes (6) COPD (chronic obstructive pulmonary disease) Is this a current diagnosis for this admission?: Yes - Notes Notes: Thank you very much for this consultation.
[2020-05-05] MEDS: CLONIDINE HCL 0.1 MG TABLET PO SCH ×2 (17:46→21:41)
[2020-05-05] MEDS ORDERED: HYDROMORPHONE HCL INJ/PF 2 MG/ML AMPULE IV ONE (18:00)
[2020-05-05] MEDS: HYDROMORPHONE HCL 2 MG TABLET PO SCH (21:41)
[2020-05-05] MEDS: GABAPENTIN 300 MG CAPSULE PO SCH (21:42)
[2020-05-05] MEDS: QUETIAPINE FUMARATE 25 MG TABLET PO SCH (21:42)
[2020-05-05] MEDS ORDERED: (PENDING PHARMACY ID) (Diltiazem Hcl [Diltiazem 24hr Er] 180 MG) PO SCH (22:00)
[2020-05-05] MEDS ORDERED: METOPROLOL TARTRATE PF/INJ 5 MG/5 ML SDV IV PRN (22:00)
[2020-05-05] MEDS ORDERED: GABAPENTIN 300 MG CAPSULE PO SCH (22:00)
[2020-05-06] MEDS ORDERED: METOPROLOL TARTRATE PF/INJ 5 MG/5 ML SDV IV ONE ×2 (00:30→00:45)
[2020-05-06 01:35] LABS: ANION GAP 16 (5-19); BLOOD UREA NITROGEN 41 mg/dL (7-20); CALCIUM 9.4 mg/dL (8.4-10.2); CARBON DIOXIDE 27 mmol/L (22-30); CHLORIDE 95 mmol/L (98-107); GLUCOSE 149 mg/dL (75-110); POTASSIUM 4.1 mmol/L (3.6-5.0)
[2020-05-06] MEDS: CLONIDINE HCL 0.1 MG TABLET PO SCH ×3 (05:28→21:16)
[2020-05-06 05:53] LABS: HEMATOCRIT 23.5 % (36.0-47.0); MEAN CORPUSCULAR HEMOGLOBIN 31.1 pg (27.0-33.4); MEAN CORPUSCULAR HGB CONC 33.7 g/dL (32.0-36.0); MEAN CORPUSCULAR VOLUME 92 fl (80-97); PLATELET COUNT 216 10^3/uL (150-450); RED BLOOD COUNT 2.54 10^6/uL (3.72-5.28); WHITE BLOOD COUNT 10.2 10^3/uL (4.0-10.5)
[2020-05-06 06:04] LABS: ANION GAP 15 (5-19); BLOOD UREA NITROGEN 44 mg/dL (7-20); CALCIUM 9.4 mg/dL (8.4-10.2); CARBON DIOXIDE 27 mmol/L (22-30); CHLORIDE 95 mmol/L (98-107); GLUCOSE 152 mg/dL (75-110); POTASSIUM 4.4 mmol/L (3.6-5.0)
[2020-05-06 06:08] LABS: HEMOGLOBIN 7.9 g/dL (12.0-15.5)
[2020-05-06] MEDS: APIXABAN 2.5 MG TABLET PO SCH ×2 (09:04→21:15)
[2020-05-06] MEDS: CALCIUM ACETATE 667 MG CAPSULE PO SCH ×3 (09:05→16:41)
[2020-05-06] MEDS: ISOSORBIDE MONONITRATE 30 MG TAB.ER.24H PO SCH (09:05)
[2020-05-06] MEDS: GABAPENTIN 300 MG CAPSULE PO SCH ×2 (09:05→21:14)
[2020-05-06] MEDS: DILTIAZEM HCL 180 MG CAPSULE.CR PO SCH ×2 (09:06→21:14)
[2020-05-06] MEDS: FAMOTIDINE 20 MG TABLET PO SCH (09:06)
[2020-05-06] MEDS: LIDOCAINE 5% (700 MG) TRANSDERMAL ADH..PATCH TP SCH (09:07)
[2020-05-06] MEDS: HYDROMORPHONE HCL 2 MG TABLET PO SCH ×2 (09:11→21:15)
[2020-05-06] MEDS: HYDROXYZINE PAMOATE 25 MG CAPSULE PO PRN (11:40)
[2020-05-06] MEDS ORDERED: HYDROMORPHONE HCL INJ/PF 2 MG/ML AMPULE IV PRN (12:35)
--- NOTE | 2020-05-06 13:17 | PDOC PROGRESS REPORT ---
Subjective Date:: 05/06/20 Subjective:: As per admitting physician's note MAREN FERRO is a 54 year old female with a history of ESRD on HD Tuesday and Tuesday, COPD on 2 L/min home oxygen, hypertension, A. fib on anticoagulation and tobacco dependence presents with shortness of breath which started this morning. She states that the shortness of breath started after she woke up this morning and progressively worsened throughout the day. She states that she is compliant with her dialysis schedule and her last session was Tuesday. She states that she is anuric. She denies cough, chest pain, fever, chills, runny nose, nausea, vomiting, diarrhea or any recent sick contact history. On arrival at the ER patient's oxygen saturation was 84% while on 3 L oxygen and she was immediately placed on BiPAP and is currently saturating 100% on FiO2 of 70%. Attempt was done to titrate down FiO2 and transition to intranasal oxygen but her saturation dropped again and she was placed back on BiPAP. She is alert and oriented with no signs of uremia and electrolytes are within the normal limits with a potassium of 4.3. She will be admitted to MICU on a BiPAP with closer monitoring of air oxygen saturation until she gets dialysis tomorrow morning. 05/06/2020. No acute events overnight. Saw patient this morning resting in bed no apparent distress, denies any fever, chills, nausea, vomiting. Still c omplaining of shortness of breath on exertion, patient on 3 L nasal cannula supplemental oxygen at home however stating that she is not back to baseline, possible discharge home tomorrow. Reason For Visit: ACUTE ON CHRONIC HYPOXIC RESPIRATORY FAILURE Physical Exam Vital Signs: Temp Pulse Resp BP Pulse Ox 97.4 F 73 16 116/74 95 05/06/20 11:58 05/06/20 11:58 05/06/20 11:58 05/06/20 11:58 05/06/20 11:58 Intake & Output 05/05/20 05/06/20 05/07/20 06:59 06:59 06:59 Intake Total 200 Output Total 3500 Balance -3300 Weight 79.6 kg General appearance: PRESENT: no acute distress, well-developed, well-nourished Head exam: PRESENT: atraumatic, normocephalic Respiratory exam: PRESENT: decreased breath sounds, symmetrical. ABSENT: rales, rhonchi, wheezes Cardiovascular exam: PRESENT: RRR. ABSENT: diastolic murmur, rubs, systolic murmur GI/Abdominal exam: PRESENT: normal bowel sounds, soft. ABSENT: distended, guarding, mass, organolmegaly, rebound, tenderness Neurological exam: PRESENT: alert, awake, oriented to person, oriented to place, oriented to time, oriented to situation, CN II-XII grossly intact. ABSENT: motor sensory deficit Results Laboratory Results: 05/06/20 04:44 05/06/20 04:44 05/06/20 05/06/20 05/06/20 00:31 04:44 04:44 WBC 10.2 RBC 2.54 L Hgb 7.9 L Hct 23.5 L MCV 92 MCH 31.1 MCHC 33.7 RDW 17.0 H Plt Count 216 Sodium 137.7 137.4 Potassium 4.1 4.4 Chloride 95 L 95 L Carbon Dioxide 27 27 Anion Gap 16 15 BUN 41 H 44 H Creatinine 6.10 H 6.40 H Est GFR ( Amer) 9 L 8 L Glucose 149 H 152 H Calcium 9.4 9.4 Magnesium 2.1 05/04/20 05/05/20 05/06/20 19:59 05:24 00:31 Troponin I 0.051 0.078 0.078 Impressions: Chest X-Ray 05/04/20 20:01 IMPRESSION: Cardiogenic pulmonary edema with bilateral pleural effusions and adjacent airspace disease. Assessment and Plan - Diagnosis (1) Acute and chronic respiratory failure with hypoxia Is this a current diagnosis for this admission?: Yes Plan: Improving, not at baseline, still complaining of dyspnea on exertion. SPO2 WNL on 3 to 4 L nasal cannula. COVID-19 serology negative. Patient presented with shortness of breath O2 saturation on presentation 84% on 3 L oxygen Likely due to pulmonary vascular congestion from end-stage renal disease complicated by COPD. Continue pulmonary toileting, as needed BiPAP, duo nebs, currently patient doing well on BiPAP Nephrology on board. Status post hemodialysis on 04/04/2020. Outpatient PCP and pulmonology follow-up. (2) COPD (chronic obstructive pulmonary disease) Is this a current diagnosis for this admission?: Yes Plan: Patient has not noticed a change in her chronic cough or sputum production No wheezing on physical exam but noted to have poor air entry bilaterally. Does not appears acute exacerbation Plan as per #1. Outpatient PCP and pulmonology follow-up. (3) ESRD (end stage renal disease) Is this a current diagnosis for this admission?: Yes Plan: On HD every Tuesday, Tuesday and Tuesday Admitted with respiratory failure due to volume overload Status post hemodialysis 04/04/2020. Continue dialysis per schedule and outpatient nephrology follow-up Appears euvolemic. Electrolytes WNL. SPO2 improving. (4) Acute pulmonary edema Is this a current diagnosis for this admission?: Yes Plan: Improving. Due to end-stage renal disease Chest x-ray on admission showed pulmonary edema with bilateral effusion Plan as per above. (5) Atrial fibrillation Qualifiers: Atrial fibrillation type: longstanding persistent Qualified Code(s): I48.11 - Longstanding persistent atrial fibrillation Is this a current diagnosis for this admission?: Yes Plan: History of longstanding persistent atrial fibrillation. Currently rate controlled and in sinus rhythm Continue metoprolol, diltiazem for rate control Continued renally dosed Teresa Outpatient PCP and cardiology follow-up. - Time Time Spent with patient: 35 or more minutes Medications reviewed and adjusted accordingly: Yes Anticipated Discharge Disposition: Home with Home Health Anticipated Discharge Timeframe: within 24 hours
--- NOTE | 2020-05-06 17:49 | EKG REPORT ---
SEVERITY:- ABNORMAL ECG - ATRIAL FIBRILLATION, V-RATE 78-158 INCOMPLETE LEFT BUNDLE BRANCH BLOCK PROBABLE LVH WITH SECONDARY REPOL ABNRM VPC : Confirmed by: Pretty Ruff 06-May-2020 17:48:22
[2020-05-06] MEDS: QUETIAPINE FUMARATE 25 MG TABLET PO SCH (21:15)
[2020-05-07] MEDS: HYDROXYZINE PAMOATE 25 MG CAPSULE PO PRN (02:00)
[2020-05-07] MEDS ORDERED: EPOETIN ALFA-EPBX 2,000 UNIT, EPOETIN ALFA-EPBX 3,000 UNIT, EPOETIN ALFA-EPBX 20,000 UN... IV PRN ×4 (05:00)
[2020-05-07] MEDS ORDERED: NORMAL SALINE 1000 ML 1,000 ML IV PRN (05:00)
[2020-05-07] MEDS: CLONIDINE HCL 0.1 MG TABLET PO SCH ×2 (05:48→13:11)
[2020-05-07 06:04] LABS: ABSOLUTE EOSINOPHILS # (AUTO) 0.1 10^3/uL (0.0-0.6); ABSOLUTE LYMPHOCYTES (AUTO) 0.6 10^3/uL (0.5-4.7); ABSOLUTE MONOCYTES (AUTO) 0.8 10^3/uL (0.1-1.4); ABSOLUTE NEUT (AUTO) 5.7 10^3/uL (1.7-8.2); BASOPHILS % (AUTO) 0.3 % (0-2); EOSINOPHILS % (AUTO) 0.8 % (0-6); HEMATOCRIT 24.2 % (36.0-47.0); HEMOGLOBIN 8.2 g/dL (12.0-15.5); LYMPHOCYTES % (AUTO) 8.4 % (13-45); MEAN CORPUSCULAR HEMOGLOBIN 31.1 pg (27.0-33.4); MEAN CORPUSCULAR HGB CONC 33.8 g/dL (32.0-36.0); MEAN CORPUSCULAR VOLUME 92 fl (80-97); MONOCYTES % (AUTO) 11.2 % (3-13); PLATELET COUNT 193 10^3/uL (150-450); RED BLOOD COUNT 2.64 10^6/uL (3.72-5.28); RED CELL DISTRIBUTION WIDTH 17.9 % (11.5-14.0); SEGMENTED NEUTROPHILS % (AUTO) 79.3 % (42-78); TOTAL CELLS COUNTED % (AUTO) 100 %; WHITE BLOOD COUNT 7.2 10^3/uL (4.0-10.5)
[2020-05-07 06:29] LABS: ALKALINE PHOSPHATASE 81 U/L (38-126); ANION GAP 16 (5-19); ASPARTATE AMINO TRANSFERASE 12 U/L (14-36); BILIRUBIN,DIRECT 0.4 mg/dL (0.0-0.4); BILIRUBIN,TOTAL 0.5 mg/dL (0.2-1.3); BLOOD UREA NITROGEN 61 mg/dL (7-20); CARBON DIOXIDE 26 mmol/L (22-30); CHLORIDE 91 mmol/L (98-107); GLUCOSE 113 mg/dL (75-110); PHOSPHORUS 4.1 mg/dL (2.5-4.5); POTASSIUM 4.1 mmol/L (3.6-5.0); TOTAL PROTEIN 7.1 g/dL (6.3-8.2)
[2020-05-07] MEDS: CALCIUM ACETATE 667 MG CAPSULE PO SCH ×2 (08:31→13:11)
--- NOTE | 2020-05-07 10:35 | PDOC PROGRESS REPORT ---
Subjective Date:: 05/07/20 Reason For Visit: Patient seen on HD today . She is a 54 year old female with a history of ESRD on HD Tuesday and Tuesday, COPD on 2 L/min home oxygen, hypertension, A. fib on anticoagulation and tobacco dependence presented with shortness of breath x 1 days duration . She has now been diagnosed to have congestive heart failure both clinically and radiologically and has responded after dialysis treatment earlier. She is currently undergoing dialysis without any issues. We will plan to remove 2-3 L of fluid as tolerated. Dialysis orders were reviewed with treating dialysis nurse. Labs and medications were reviewed.Her Covid serology by PCR was negative. Physical Exam Vital Signs: Temp Pulse Resp BP Pulse Ox 97.5 F 84 11 L 91/66 L 100 05/07/20 03:31 05/07/20 07:00 05/07/20 04:49 05/07/20 03:31 05/07/20 04:49 Intake & Output 05/06/20 05/07/20 05/08/20 06:59 06:59 06:59 Intake Total 200 1512 Output Total 3500 0 Balance -3300 1512 Weight 85.1 kg General appearance: PRESENT: no acute distress Respiratory exam: PRESENT: clear to auscultation andrae, decreased breath sounds. ABSENT: crackles Cardiovascular exam: PRESENT: +S1, +S2, systolic murmur GI/Abdominal exam: PRESENT: normal bowel sounds, soft. ABSENT: organomegaly, tenderness Extremities exam: ABSENT: pedal edema Neurological exam: PRESENT: alert, awake, oriented to person, oriented to place Psychiatric exam: PRESENT: appropriate affect Results Laboratory Results: 05/07/20 05:44 05/07/20 05:44 05/07/20 05/07/20 05:44 05:44 WBC 7.2 RBC 2.64 L Hgb 8.2 L Hct 24.2 L MCV 92 MCH 31.1 MCHC 33.8 RDW 17.9 H Plt Count 193 Seg Neutrophils % 79.3 H Sodium 132.8 L Potassium 4.1 Chloride 91 L Carbon Dioxide 26 Anion Gap 16 BUN 61 H Creatinine 7.37 H Est GFR ( Amer) 7 L Glucose 113 H Calcium 9.0 Phosphorus 4.1 Total Bilirubin 0.5 AST 12 L Alkaline Phosphatase 81 Total Protein 7.1 Albumin 4.0 05/04/20 05/05/2005/06/20 19:59 05:24 00:31 Troponin I 0.051 0.078 0.078 Impressions: Chest X-Ray 05/04/20 20:01 IMPRESSION: Cardiogenic pulmonary edema with bilateral pleural effusions and adjacent airspace disease. Assessment & Plan - Diagnosis (1) Acute and chronic respiratory failure with hypoxia Is this a current diagnosis for this admission?: Yes Plan: Secondary to congestive heart failure which is improved with dialysis x2. Continue on current guidelines. (2) Pulmonary edema Qualifiers: Chronicity: acute Qualified Code(s): J81.0 - Acute pulmonary edema Plan: Today is second day of dialysis as patient seems to be responding well. (3) ESRD (end stage renal disease) Is this a current diagnosis for this admission?: Yes Plan: Patient seen while undergoing dialysis. Vital signs are stable. Plan to remove 2-3 L of fluid as tolerated. Dialysis orders were reviewed with the treating dialysis nurse. (4) Anemia in chronic kidney disease (CKD) Is this a current diagnosis for this admission?: Yes Plan: On erythropoietin. Will order iron studies in the meanwhile. Monitor.
[2020-05-07] MEDS: APIXABAN 2.5 MG TABLET PO SCH (12:13)
[2020-05-07] MEDS: DILTIAZEM HCL 180 MG CAPSULE.CR PO SCH (12:13)
[2020-05-07] MEDS: GABAPENTIN 300 MG CAPSULE PO SCH (12:13)
[2020-05-07] MEDS: ISOSORBIDE MONONITRATE 30 MG TAB.ER.24H PO SCH (12:13)
[2020-05-07] MEDS: FAMOTIDINE 20 MG TABLET PO SCH (12:13)
[2020-05-07] MEDS: LIDOCAINE 5% (700 MG) TRANSDERMAL ADH..PATCH TP SCH (12:17)
[2020-05-07] MEDS: HYDROMORPHONE HCL 2 MG TABLET PO SCH (12:34)
[2020-05-07 13:56] VITALS: BP 167/90
--- NOTE | 2020-05-10 09:10 | PDOC DISCHARGE SUMMARY ---
Impression - Admit/DC Date/PCP Admission Date/Primary Care Provider: 05/06/20 12:33 Discharge Date: 05/07/20 - Discharge Diagnosis (1) Acute and chronic respiratory failure with hypoxia Is this a current diagnosis for this admission?: Yes (2) COPD (chronic obstructive pulmonary disease) Is this a current diagnosis for this admission?: Yes (3) ESRD (end stage renal disease) Is this a current diagnosis for this admission?: Yes (4) Acute pulmonary edema Is this a current diagnosis for this admission?: Yes (5) Atrial fibrillation Is this a current diagnosis for this admission?: Yes - Additional Information Resuscitation Status: Full Code Discharge Diet: Regular Discharge Activity: Activity As Tolerated Referrals: Sotero ADHIKARI MD [ACTIVE STAFF] - (Office stated that they will call patient.) Prescriptions: RX: Quetiapine Fumarate [Seroquel 25 mg Tablet] 25 mg PO QHS 30 Days #30 tab Home Medications: RX: Isosorbide Mononitrate [Imdur 30 mg Tablet.er] 30 mg PO DAILY 04/08/15 RX: Metoprolol Tartrate [Lopressor] 50 mg PO SUTUTHSA@,07/21/15 RX: Albuterol Sulfate [Proair HFA] 2 puff IH Q4HP PRN 10/07/15 RX: Apixaban [Eliquis 2.5 mg Tablet] 2.5 mg PO BID 04/11/20 RX: Calcium Acetate [Phoslo 667 mg Capsule] 1,334 mg PO MEALS 04/11/20 RX: Diltiazem HCl [Diltiazem 24Hr ER] 180 mg PO Q12 04/11/20 RX: Gabapentin [Neurontin 300 mg Capsule] 300 mg PO Q12 04/11/20 RX: Hydromorphone HCl [Dilaudid 2 mg Tablet] 2 mg PO Q12 04/11/20 RX: Lidocaine [Lidoderm 5% (700 mg) Transdermal Patch] 1 patch TP DAILY 04/11/20 RX: Clonidine HCl [Catapres 0.1 mg Tablet] 0.3 mg PO Q8 05/05/20 RX: Ergocalciferol (Vitamin D2) [Drisdol 50,000 unit (1.25MG) Capsule] 50,000 unit PO SA@1000 05/05/20 RX: Hydroxyzine HCl [Atarax 10 mg Tablet] 25 mg PO TIDP PRN 05/05/20 RX: Quetiapine Fumarate [Seroquel 25 mg Tablet] 25 mg PO QHS 30 Days #30 tab 05/07/20 History of Present Illiness History of Present Illness: As per admitting physician's note MAREN FERRO is a 54 year old female with a history of ESRD on HD Tuesday and Tuesday, COPD on 2 L/min home oxygen, hypertension, A. fib on anticoagulation and tobacco dependence presents with shortness of breath which started this morning. She states that the s hortness of breath started after she woke up this morning and progressively worsened throughout the day. She states that she is compliant with her dialysis schedule and her last session was Tuesday. She states that she is anuric. She denies cough, chest pain, fever, chills, runny nose, nausea, vomiting, diarrhea or any recent sick contact history. On arrival at the ER patient's oxygen saturation was 84% while on 3 L oxygen and she was immediately placed on BiPAP and is currently saturating 100% on FiO2 of 70%. Attempt was done to titrate down FiO2 and transition to intranasal oxygen but her saturation dropped again and she was placed back on BiPAP. She is alert and oriented with no signs of uremia and electrolytes are within the normal limits with a potassium of 4.3. She will be admitted to MICU on a BiPAP with closer monitoring of air oxygen saturation until she gets dialysis tomorrow morning. Hospital Course Hospital Course: (1) Acute and chronic respiratory failure with hypoxia Moderate improvement. Back at baseline. SPO2 WNL on 3 L nasal cannula. COVID-19 serology negative. Patient presented with shortness of breath O2 saturation on presentation 84% on 3 L oxygen Likely due to pulmonary vascular congestion from end-stage renal disease complicated by COPD. Continued on pulmonary toileting, as needed BiPAP, volodymyr pemberton, currently patient doing well on BiPAP Outpatient PCP and pulmonology follow-up. (2) COPD (chronic obstructive pulmonary disease) Patient has not noticed a change in her chronic cough or sputum production No wheezing on physical exam but noted to have poor air entry bilaterally. Did not appears acute exacerbation Plan as per #1. Outpatient PCP and pulmonology follow-up. (3) ESRD (end stage renal disease) On HD every Tuesday, Tuesday and Tuesday Admitted with respiratory failure due to volume overload Status post hemodialysis on 05/05/2020 and 05/07/2020. Continue dialysis per schedule as outpatient and nephrology follow-up Appeared euvolemic. Electrolytes WNL. SPO2 improving. (4) Acute pulmonary edema Resolved. SPO2 WNL on 3 L which is her baseline. Due to end-stage renal disease Chest x-ray on admission showed pulmonary edema with bilateral effusion Plan as per above. (5) Atrial fibrillation History of longstanding persistent atrial fibrillation. Currently rate controlled and in sinus rhythm Continued metoprolol, diltiazem for rate control Continued renally dosed Eliquis Outpatient PCP and cardiology follow-up. Physical Exam Vital Signs: Temp Pulse Resp BP Pulse Ox 97.5 F 85 11 L 167/90 H 100 05/07/20 13:48 05/07/20 13:48 05/07/20 13:48 05/07/20 13:48 05/07/20 13:48 General appearance: PRESENT: no acute distress, well-developed, well-nourished Head exam: PRESENT: atraumatic, normocephalic Respiratory exam: PRESENT: clear to auscultation andrae. ABSENT: rales, rhonchi, wheezes Rectal exam: PRESENT: deferred Neurological exam: PRESENT: alert, awake, oriented to person, oriented to place, oriented to time, oriented to situation, CN II-XII grossly intact. ABSENT: motor sensory deficit Results Laboratory Results: WBC 7.2 10^3/uL (4.0-10.5) 05/07/20 05:44 RBC 2.64 10^6/uL (3.72-5.28) L 05/07/20 05:44 Hgb 8.2 g/dL (12.0-15.5) L 05/07/20 05:44 Hct 24.2 % (36.0-47.0) L 05/07/20 05:44 MCV 92 fl (80-97) 05/07/20 05:44 MCH 31.1 pg (27.0-33.4) 05/07/20 05:44 MCHC 33.8 g/dL (32.0-36.0) 05/07/20 05:44 RDW 17.9 % (11.5-14.0) H 05/07/20 05:44 Plt Count 193 10^3/uL (150-450) 05/07/20 05:44 Lymph % (Auto) 8.4 % (13-45) L 05/07/20 05:44 [place] % (Auto) 11.2 % (3-13) 05/07/20 05:44 Eos % (Auto) 0.8 % (0-6) 05/07/20 05:44 Baso % (Auto) 0.3 % (0-2) 05/07/20 05:44 Absolute Neuts (auto) 5.7 10^3/uL (1.7-8.2) 05/07/20 05:44 Absolute Lymphs (auto) 0.6 10^3/uL (0.5-4.7) 05/07/20 05:44 Absolute Monos (auto) 0.8 10^3/uL (0.1-1.4) 05/07/20 05:44 Absolute Eos (auto) 0.1 10^3/uL (0.0-0.6) 05/07/20 05:44 Absolute Basos (auto) 0.0 10^3/uL (0.0-0.2) 05/07/20 05:44 Seg Neutrophils % 79.3 % (42-78) H 05/07/20 05:44 Sodium 132.8 mmol/L (137-145) L 05/07/20 05:44 Potassium 4.1 mmol/L (3.6-5.0) 05/07/20 05:44 Chloride 91 mmol/L (98-107) L 05/07/20 05:44 Carbon Dioxide 26 mmol/L (22-30) 05/07/20 05:44 Anion Gap 16 (5-19) 05/07/20 05:44 BUN 61 mg/dL (7-20) H 05/07/20 05:44 Creatinine 7.37 mg/dL (0.52-1.25) H 05/07/20 05:44 Est GFR ( Amer) 7 (>60) L 05/07/20 05:44 Est GFR (MDRD) Non-Af 6 (>60) L 05/07/20 05:44 Glucose 113 mg/dL (75-110) H 05/07/20 05:44 Calcium 9.0 mg/dL (8.4-10.2) 05/07/20 05:44 Phosphorus 4.1 mg/dL (2.5-4.5) 05/07/20 05:44 Magnesium 2.1 mg/dL (1.6-2.3) 05/06/20 00:31 Total Bilirubin 0.5 mg/dL (0.2-1.3) 05/07/20 05:44 Direct Bilirubin 0.4 mg/dL (0.0-0.4) 05/07/20 05:44 Neonat Total Bilirubin Not Reportable 05/07/20 05:44 Neonat Direct Bilirubin Not Reportable 05/07/20 05:44 Neonat Indirect Bili Not Reportable 05/07/20 05:44 AST 12 U/L (14-36) L 05/07/20 05:44 ALT 5 U/L (<35) 05/07/20 05:44 Alkaline Phosphatase 81 U/L (38-126) 05/07/20 05:44 Troponin I 0.078 ng/mL 05/06/20 00:31 Total Protein 7.1 g/dL (6.3-8.2) 05/07/20 05:44 Albumin 4.0 g/dL (3.5-5.0) 05/07/20 05:44 COVID-19 Source See comment 05/04/20 21:07 COVID-19 (NOREEN) Not Detected (Not Detect) 05/04/20 21:07 05/04/20 05/05/20 05/06/20 19:59 05:24 00:31 Troponin I 0.051 0.078 0.078 Impressions: Chest X-Ray 05/04/20 20:01 IMPRESSION: Cardiogenic pulmonary edema with bilateral pleural effusions and adjacent airspace disease. Stroke Is this a Stroke Patient?: No Acute Heart Failure Is this a Heart Failure Patient?: No
[2020-05-10] MEDS ORDERED: ERGOCALCIFEROL (VITAMIN D2) 50000 UNIT (1.25 MG) CAPSULE PO SCH (10:00)
== END 2020-05-07 14:23 | disposition home or self-care (01) | DRG 682 ==
LOC: ER 19:53 → EH 05-05 01:10 → INTOOBSV 05-05 01:10 → 3N 05-05 04:59 → 3W 05-06 09:31 → OBSVTOIN 05-06 12:33
PROVIDERS: ADMIT Student in an Organized Health Care Education/Training Program; ATTEND Internal Medicine
PROC: 5A09457 Assistance with Respiratory Ventilation, 24-96 Consecutive Hours, Continuous Positive Airway Pressure (ICD-10-PCS; 2020-05-04)
PROC: 5A1D70Z Performance of Urinary Filtration, Intermittent, Less than 6 Hours Per Day (ICD-10-PCS; principal; 2020-05-05)
PROC: 5A09357 Assistance with Respiratory Ventilation, Less than 24 Consecutive Hours, Continuous Positive Airway Pressure (ICD-10-PCS; 2020-05-06)
PROC: 5A1D70Z Performance of Urinary Filtration, Intermittent, Less than 6 Hours Per Day (ICD-10-PCS; 2020-05-07)
DX: I12.0 Hypertensive chronic kidney disease with stage 5 chronic kidney disease or end stage renal disease (principal); J96.21 Acute and chronic respiratory failure with hypoxia; N18.6 End stage renal disease; N25.81 Secondary hyperparathyroidism of renal origin; I48.11 Longstanding persistent atrial fibrillation; I25.10 Atherosclerotic heart disease of native coronary artery without angina pectoris; J44.9 Chronic obstructive pulmonary disease, unspecified; E83.51 Hypocalcemia; K21.9 Gastro-esophageal reflux disease without esophagitis; D63.1 Anemia in chronic kidney disease; F32.9 Major depressive disorder, single episode, unspecified; Z20.828 Contact with and (suspected) exposure to other viral communicable diseases; F17.210 Nicotine dependence, cigarettes, uncomplicated; I25.2 Old myocardial infarction; Q63.1 Lobulated, fused and horseshoe kidney; Z99.81 Dependence on supplemental oxygen; Z86.718 Personal history of other venous thrombosis and embolism; Z79.899 Other long term (current) drug therapy; Z79.01 Long term (current) use of anticoagulants; Z88.6 Allergy status to analgesic agent; Z88.1 Allergy status to other antibiotic agents; Z88.0 Allergy status to penicillin; Z84.1 Family history of disorders of kidney and ureter; Z83.3 Family history of diabetes mellitus; Z82.49 Family history of ischemic heart disease and other diseases of the circulatory system
CPT/HCPCS: 36415; 71045; 80048; 80053; 83735; 84100; 84484; 85025; 85027; 87635; 93005; 93010; 94640; 94660; 94668; 94799; 96374; 99285; C9803; G0378; J1170; J1200; J2405; J2930; J3490; Q5105

== ENCOUNTER 2020-05-09 16:09 | Emergency (ER) | payer MEDICARE ==
[2020-05-09] MEDS ORDERED: HYDROMORPHONE HCL INJ/PF 2 MG/ML AMPULE IV ONE (17:09)
[2020-05-09] MEDS ORDERED: DIPHENHYDRAMINE HCL 50 MG/ML VIAL IV ONE (17:09)
--- NOTE | 2020-05-09 17:26 | RADIOLOGY REPORT (SQ) ---
11 8 EXAM DESCRIPTION: CHEST SINGLE VIEW IMAGES COMPLETED DATE/TIME: 05/09/2020 3:57 pm REASON FOR STUDY: SOB COMPARISON: None. EXAM PARAMETERS: NUMBER OF VIEWS: One view. TECHNIQUE: Single frontal radiographic view of the chest acquired. RADIATION DOSE: NA LIMITATIONS: None. FINDINGS: LUNGS AND PLEURA: Small to moderate right and small left pleural effusion with compressive atelectasis at the lung bases improved since prior exam. No pneumothorax. MEDIASTINUM AND HILAR STRUCTURES: No masses. Contour normal. HEART AND VASCULAR STRUCTURES: Moderate cardiomegaly. Indistinctness of the pulmonary vasculature. BONES: No acute findings. HARDWARE: None in the chest. OTHER: No other significant finding. IMPRESSION: Small bilateral pleural effusions with compressive atelectasis/consolidation at the lung bases, improved from prior. Mild pulmonary edema. TECHNICAL DOCUMENTATION: JOB ID: [id number] 2010 [email or web address]- All Rights Reserved Reading location - IP/workstation name: [email or web address]
--- NOTE | 2020-05-09 17:33 | ER Document Report ---
ED General - General Mode of Arrival: Medic Information source: Patient TRAVEL OUTSIDE OF THE [place] IN LAST 30 DAYS: No - HPI Onset: Yesterday Onset/Duration: Persistent Quality of pain: Achy, Sharp Pain Level: 5 Associated symptoms: Nonproductive cough, Nausea, Vomiting, Shortness of breath. denies: Chest pain, Diarrhea, Fever Exacerbated by: Denies Relieved by: Denies Similar symptoms previously: Yes Recently seen / treated by doctor: Yes <DANNI CHENG - Last Filed: 05/09/20 20:21> <MP NEUMANN - Last Filed: 05/10/20 07:29> - General Chief Complaint: Shortness Of Breath Stated Complaint: SHORTNESS OF BREATH Time Seen by Provider: 05/09/20 16:53 Notes: Patient presents complaining of lower abdominal pain that started yesterday and persisted today. Patient has a history of end-stage renal disease and was at dialysis today. Patient finished all the the last 20 minutes of her session today. Patient does complain of some shortness of breath. Patient was placed on a nitro drip as well as BiPAP per EMS. Patient states she has had nausea and vomiting x3 episodes today. Patient denies any diarrhea. Patient reports occasional cough. Patient was just discharged 2 days ago after having pulmonary edema with hypertension. (DANNI CHENG) - Related Data Allergies/Adverse Reactions: acetaminophen [From Percocet] Allergy (Verified 04/11/20 15:46) cefazolin Allergy (Verified 04/11/20 15:44) codeine Allergy (Verified 04/11/20 15:46) morphine Allergy (Verified 04/11/20 15:45) oxycodone [From Percocet] Allergy (Verified 04/11/20 15:46) Penicillins Allergy (Verified 04/11/20 15:45) Past Medical History - General Information source: Patient - Social History Smoking Status: Current Every Day Smoker Frequency of alcohol use: Occasional Drug Abuse: None Lives with: Family Family History: Reviewed & Not Pertinent, Other - mother with epilepsy - Past Medical History Cardiac Medical History: Reports: Hx Atrial Fibrillation, Hx Coronary Artery Dis ease, Hx DVT - remains on coumadin, Hx Heart Attack, Hx Hypertension Pulmonary Medical History: Reports: Hx Asthma, Hx COPD Denies: Hx Bronchitis, Hx Pneumonia Neurological Medical History: Reports: Hx Seizures - DUE TO MEDICATIONS. 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, history of glomerulonephritis but not biopsy-proven, Hx Hemodialysis GI Medical History: Reports: Hx Gastroesophageal Reflux Disease Musculoskeletal Medical History: Reports Hx Arthritis Psychiatric Medical History: Reports: Hx Depression Past Surgical History: Reports: Hx Abdominal Surgery, Hx Herniorrhaphy - Abdominal hernia, Hx Orthopedic Surgery - Left knee, Hx Vascular Surgery - Previous PermCath placement, Other - Parathyroidectomy; exploratory laparotomy with colon resection/colostomy - Immunizations Hx Diphtheria, Pertussis, Tetanus Vaccination: Yes Hx Pneumococcal Vaccination: 10/07/15 <DANNI CHENG - Last Filed: 05/09/20 20:21> Review of Systems - Review of Systems Constitutional: No symptoms reported. denies: Fever EENT: No symptoms reported Cardiovascular: No symptoms reported. denies: Chest pain Respiratory: Cough - mild, Short of breath Gastrointestinal: Abdominal pain, Nausea, Vomiting. denies: Diarrhea Genitourinary: No symptoms reported Female Genitourinary: No symptoms reported Musculoskeletal: No symptoms reported. denies: Back pain Skin: No symptoms reported Hematologic/Lymphatic: No symptoms reported Neurological/Psychological: No symptoms reported <DANNI CHENG - Last Filed: 05/09/20 20:21> Physical Exam - General General appearance: Alert In distress: Moderate - HEENT Head: Normocephalic Eyes: Normal Nasal: Normal Mouth/Lips: Normal - Respiratory Respiratory status: Tachypnea Chest status: Nontender Breath sounds: Nonproductive cough, Rales Chest palpation: Normal. No: Tender - Cardiovascular Rhythm: Tachycardia Heart sounds: S1 appreciated, S2 appreciated - Abdominal Inspection: Normal Distension: No distension Bowel sounds: Normal Tenderness: Tender - lower abd tenderness, Guarding Organomegaly: No organomegaly - Back Back: Normal, Nontender. No: CVA tenderness - Extremities General upper extremity: Normal inspection, Normal ROM General lower extremity: Normal inspection, Normal ROM - Neurological Neuro grossly intact: Yes Cognition: Normal [place] Scale Eye Opening: Spontaneous [place] Scale Verbal: Oriented [place] Coma Scale Motor: Obeys Commands [place] Com[place] Scale Total: 15 - Psychological Associated symptoms: Normal affect, Normal mood - Skin Skin Temperature: Warm Skin Moisture: Dry Skin Color: Normal <DANNI CHENG - Last Filed: 05/09/20 20:21> - Vital signs Vitals: BP Pulse Ox 178/102 H 100 05/09/20 16:16 05/09/20 16:16 Course - EKG Interpretation by Me EKG shows normal: Sinus rhythm Rate: Tachycardia [place]/QRS: LBBB - Incomplete When compared to previous EKG there are: No significant change <DANNI CHENG - Last Filed: 05/09/20 20:21> - Laboratory Result Diagrams: 05/09/20 21:22 05/09/20 21:22 <MP NEUMANN - Last Filed: 05/10/20 07:29> - Re-evaluation Re-evalutation: 05/09/20 17:[address] Jacinto regarding patient presentation and diagnostic ev aluation and treatment at this time. Agrees with plan for noncontrasted CT imaging to evaluate lower abdominal tenderness. Additional medications advised at this time as patient is presently on a nitroglycerin drip at 20 mcg/min as well as BiPAP to manage her symptoms at this time. 05/09/20 20:30 Patient continues tachycardic, heart rate 110s, Dr. Jacinto reviewed patient's EKG, recommends continued with nitro and BiPAP at this time no additional medications advised for rate control. 05/09/20 19:46 Patient reports that nausea symptoms have improved although abdominal pain is still present. Patient denies needing any additional pain medication at this time. Patient's heart rate still tachycardic and blood pressure still elevated. Patient states that she has not had any of her usual antihypertensive medications. Patient's usual meds ordered at this time. She states that her abdominal pain is typical of when she has had problems with ovarian cyst that had to be removed in the past. Patient's chest x-ray report states that atelectasis/consolidation appears improved as compared to patient's prior x-ray. 05/09/20 20:10 Report and handoff given to SHELIA Shaw 05/09/20 20:[address] Mcwilliams who is the nighttime hospitalist regarding patient status in the ER, he states that if patient requires dialysis that she will likely require transfer as we have no nephrology services over the weekend. (DANNI CHENG) 05/09/20 22:35 I was able to obtain ultrasound-guided IV and we were finally able to obtain laboratory work-up (there was a delay in this due to patient's limited access options). Laboratory work-up shows nonspecific CBC with chronic normocytic anemia, elevated renal functioning as expected noted on chemistry, potassium is 4.2. Patient does not make urine. Patient is nondistressed on my exam, blood pressure still 170s systolic, respiratory rate is normal, no signs of distress, patient fell asleep, easily aroused, coherent. Troponin is elevated at 0.4, this is increased from prior, however patient was hypoxic in the 70s on initial arrival by EMS and patient was very hypertensive without taking her home medications. I discussed with patient again, she denies ever having any chest pain. Discussed with Dr. Jacinto, she recommends discussion with hospitalist for admission. Ultrasound and imaging of the lower abdomen unremarkable except for fibroids, abdominal exam is not concerning. 05/09/20 22:50 I called and spoke with Dr. Mcwilliams. He states we do not have nephrology coverage all weekend, and this patient with concerns for flash pulmonary edema with hypertensive urgency he feels the patient will require nephrology consult/coverage and potential dialysis over the weekend, he declines patient for admission. I discussed in detail with patient. She prefers [facility]. I called and spoke with [facility] transfer center, pending callback. I spoke with Dr. James, hospitalist, patient accepted for transfer. 05/09/20 Patient became anxious, pulled off her BiPAP. She almost immediately desaturat ed down to the 70s and started having tachypnea. Patient was given Ativan for anxiety, quickly calmed down, replaced BiPAP, patient stated appreciation. 05/10/20 03:00 Transport team is here, patient reevaluate at bedside. Patient is sleeping, easily aroused, no current complaints. Report given to transport team. No significant change in vital signs. Patient stable for transport. (MP NEUMANN) - Vital Signs Vital signs: Temp Pulse Resp BP Pulse Ox 97.6 F 18 166/96 H 100 05/09/20 23:41 05/10/20 03:01 05/10/20 03:00 05/10/20 03:01 - Laboratory Laboratory results interpreted by me: 05/09/20 05/09/20 21:22 21:22 RBC 2.94 L Hgb 8.8 L Hct 27.0 L RDW 17.7 H Lymph % (Auto) 7.9 L [place] % (Auto) 17.3 H Sodium 136.6 L Chloride 94 L Carbon Dioxide 32 H BUN 26 H Creatinine 3.90 H Est GFR ( Amer) 14 L Est GFR (MDRD) Non-Af 12 L Glucose 148 H - EKG Interpretation by Me Additional EKG results interpreted by me: 05/09/20 19:14 No significant change when compared with prior. Sinus tach with a rate of 117, QTc 491 (DANNI CHENG) Discharge <DANNI CHENG - Last Filed: 05/09/20 20:21> <MP NEUMANN - Last Filed: 05/10/20 07:29> - Discharge Clinical Impression: Hypertensive urgency, Respiratory distress, Noncompliance with medication re gimen Respiratory failure Qualifiers: Chronicity: acute Respiratory failure complication: hypoxia Qualified Code(s): J96.01 - Acute respiratory failure with hypoxia Condition: Stable Disposition: [facility]
[2020-05-09] MEDS ORDERED: ONDANSETRON HCL INJ/PF 4 MG/2 ML SDV IV ONE (18:52)
[2020-05-09] MEDS ORDERED: NITROGLYCERIN/D5W 50 MG/250 ML RTUINJ IV PRN (19:09)
--- NOTE | 2020-05-09 19:28 | RADIOLOGY REPORT (SQ) ---
EXAM DESCRIPTION: CT ABD/PELVIS NO ORAL OR IV IMAGES COMPLETED DATE/TIME: 05/09/2020 6:08 pm REASON FOR STUDY: lower abd pain, hx dialysis COMPARISON: None. TECHNIQUE: CT scan of the abdomen and pelvis performed without intravenous or oral contrast. Images reviewed with lung, soft tissue, and bone windows. Reconstructed coronal and sagittal MPR images revi ewed. All images stored on PACS. All CT scanners at this facility use dose modulation, iterative reconstruction, and/or weight based d osing when appropriate to reduce radiation dose to as low as reasonably achievable (ALARA). [facility]: Dose Right [facility]: CareDose [facility]: Dose Right [facility]: Teradose 4D [facility]: Smart CYPHER RADIATION DOSE: CT Rad equipment meets quality standard of care and radiation dose reduction techniq ues were employed. CTDIvol: 16.2 mGy. DLP: 889 mGy-cm.mGy. LIMITATIONS: None. FINDINGS: LOWER CHEST: There are small to moderate bilateral pleural effusions with compressive atel ectasis at the lung bases. Moderate cardiomegaly. Calcified coronary arteries. Small pericardial e ffusion or thickening. NON-CONTRASTED LIVER, SPLEEN, ADRENALS: Limited evaluation of the solid organs without IV contrast. Liver has normal size and contour. Spleen is upper limits of normal in size measuring 12.2 cm cranio caudal at the midclavicular line. No perisplenic fluid. No adrenal mass. PANCREAS: No masses. No peripancreatic inflammatory changes. GALLBLADDER: No identified stones by CT criteria. No inflammatory changes to suggest cholecystitis. RIGHT KIDNEY AND URETER: There is a horseshoe kidney with multiple bilateral renal calculi. No obstr ucting renal or ureteral calculus. Diffuse renal cortical atrophy. No hydronephrosis. No perinep hric fluid. LEFT KIDNEY AND URETER: Horseshoe kidney. See above. AORTA AND RETROPERITONEUM: No aortic aneurysm. Extensive atherosclerotic plaque. BOWEL AND PERITONEAL CAVITY: No obvious masses or inflammatory changes. No free fluid. APPENDIX: Normal. PELVIS, BLADDER, AND ABDOMINAL WALL:Leiomyomatous uterus. No adnexal mass. Urinary bladder is decom pressed. Small amount of free fluid in the pelvis. No pelvic adenopathy. . BONES: No significant findings. OTHER: No other significant finding. IMPRESSION: 1. Small to moderate bilateral pleural effusions with compressive atelectasis/consolidation at the jerome ng bases. 2. Small pericardial effusion and moderate cardiomegaly. 3. Small amount of free fluid in the pelvis. COMMENT: Quality ID # [id number]: Final reports with documentation of one or more dose reduction techniques (e.g., Automated exposure control, adjustment of the mA and/or kV according to patient size, use of iterative reconstruction technique) TECHNICAL DOCUMENTATION: JOB ID: [id number] 2010 [employer]- All Rights Reserved Reading location - IP/workstation name: [email or web address]
[2020-05-09] MEDS ORDERED: METOPROLOL TARTRATE 50 MG TABLET PO ONE (19:40)
[2020-05-09] MEDS ORDERED: APIXABAN 2.5 MG TABLET PO ONE (19:40)
[2020-05-09] MEDS ORDERED: DILTIAZEM HCL 180 MG CAPSULE.CR PO ONE (19:40)
[2020-05-09] MEDS ORDERED: ISOSORBIDE MONONITRATE 30 MG TAB.ER.24H PO ONE (19:41)
--- NOTE | 2020-05-09 21:06 | RADIOLOGY REPORT (SQ) ---
US PELVIS HISTORY: 54 years Female pelvic pain COMPARISON: CT scan of the abdomen and pelvis obtained earlier in the evening Technique: Transabdominal Imaging of the pelvis was performed. Color and spectral imaging was performed. The bladder was empty. Uterus: The uterus is anteverted and measures 4.4 x 3.6 x 4.7 cm. The endometrium measures 1.3 mm. A high glucose areas seen in the uterine fundus which may represent a fibroid. This measures 2.6 x 2.2 x 2.5 cm. The cervix measures 2.7 cm. Right Ovary: The ovary measures 2.4 x 1.3 x 2.2 cm and is unremarkable.. Normal color flow Left Ovary: The ovary measures 1.8 x 1.4 x 2.1 cm and is unremarkable. Normal color flow Other: No free fluid. There is dilated vessels in the adnexa bilaterally. IMPRESSION: No acute process.
[2020-05-09 21:40] LABS: ABSOLUTE LYMPHOCYTES (AUTO) 0.5 10^3/uL (0.5-4.7); ABSOLUTE MONOCYTES (AUTO) 1.2 10^3/uL (0.1-1.4); ABSOLUTE NEUT (AUTO) 5.1 10^3/uL (1.7-8.2); BASOPHILS % (AUTO) 0.1 % (0-2); EOSINOPHILS % (AUTO) 0.6 % (0-6); HEMOGLOBIN 8.8 g/dL (12.0-15.5); LYMPHOCYTES % (AUTO) 7.9 % (13-45); MEAN CORPUSCULAR HGB CONC 32.6 g/dL (32.0-36.0); MEAN CORPUSCULAR VOLUME 92 fl (80-97); MONOCYTES % (AUTO) 17.3 % (3-13); PLATELET COUNT 245 10^3/uL (150-450); RED BLOOD COUNT 2.94 10^6/uL (3.72-5.28); RED CELL DISTRIBUTION WIDTH 17.7 % (11.5-14.0); SEGMENTED NEUTROPHILS % (AUTO) 74.1 % (42-78); TOTAL CELLS COUNTED % (AUTO) 100 %; WHITE BLOOD COUNT 6.9 10^3/uL (4.0-10.5)
[2020-05-09 21:53] LABS: ALBUMIN 3.8 g/dL (3.5-5.0); ALKALINE PHOSPHATASE 68 U/L (38-126); ANION GAP 11 (5-19); ASPARTATE AMINO TRANSFERASE 15 U/L (14-36); BILIRUBIN,DIRECT 0.3 mg/dL (0.0-0.4); BILIRUBIN,TOTAL 0.9 mg/dL (0.2-1.3); BLOOD UREA NITROGEN 26 mg/dL (7-20); CALCIUM 9.1 mg/dL (8.4-10.2); CARBON DIOXIDE 32 mmol/L (22-30); CHLORIDE 94 mmol/L (98-107); GLUCOSE 148 mg/dL (75-110); POTASSIUM 4.2 mmol/L (3.6-5.0)
[2020-05-09] MEDS ORDERED: PROMETHAZINE HCL INJ 25 MG/1 ML VIAL IM ONE (23:57)
[2020-05-10] MEDS ORDERED: LORAZEPAM INJ 2 MG/1 ML VIAL IV ONE (01:12)
[2020-05-10 03:06] VITALS: BP 166/96
--- NOTE | 2020-05-10 09:23 | EKG REPORT ---
SEVERITY:- ABNORMAL ECG - SINUS OR ECTOPIC ATRIAL TACHYCARDIA INCOMPLETE LEFT BUNDLE BRANCH BLOCK LVH WITH SECONDARY REPOLARIZATION ABNORMALITY : Confirmed by: Pretty Ruff 10-May-2020 09:22:12
== END 2020-05-10 03:20 | disposition short-term general hospital (02) ==
LOC: ER 16:09
DX: I16.0 Hypertensive urgency (principal); J96.01 Acute respiratory failure with hypoxia; R11.2 Nausea with vomiting, unspecified; R10.30 Lower abdominal pain, unspecified; Z20.828 Contact with and (suspected) exposure to other viral communicable diseases; I12.0 Hypertensive chronic kidney disease with stage 5 chronic kidney disease or end stage renal disease; N18.6 End stage renal disease; I48.91 Unspecified atrial fibrillation; Z99.2 Dependence on renal dialysis; Z86.718 Personal history of other venous thrombosis and embolism; Z79.01 Long term (current) use of anticoagulants; Z88.6 Allergy status to analgesic agent
CPT/HCPCS: 93005; 99285; 96372; 96375; 96365; 96366 ×2; 36415; 87040; 83690; 85025; 80053; 84484; 71045; 76856; 74176; 93010; U0003; A9270 ×4; J1200; J1170; J2060; J2550; J2405; J3490; C9803; 87635

== ENCOUNTER 2020-06-27 14:42 | Emergency (ER) | payer MEDICARE ==
[2020-06-27 14:52] VITALS: BP 150/96
[2020-06-27] MEDS ORDERED: CLINDAMYCIN 600 MG/D5W RTU 600 MG/50 ML RTUPB IV ONE (16:32)
[2020-06-27] MEDS ORDERED: HYDROMORPHONE HCL INJ/PF 2 MG/ML AMPULE IV ONE (16:32)
[2020-06-27] MEDS ORDERED: DIPHENHYDRAMINE HCL 50 MG/ML VIAL IV ONE (16:32)
--- NOTE | 2020-06-27 16:34 | ER Document Report ---
ED Medical Screen (RME) - General Stated Complaint: DENTAL PROBLEM Time Seen by Provider: 06/27/20 16:23 Mode of Arrival: Ambulatory Information source: Patient Notes: Patient presents complaining of dental infection with facial and left lateral neck swelling for the past 4 days. Patient does have a history of hypertension, A. fib, asthma and end-stage renal disease. Patient dialyzes on Tuesday. Patient finished all but 20 minutes of her dialysis session today. I have greeted and performed a rapid initial assessment of this patient. A comprehensive ED assessment and evaluation of the patient, analysis of test results and completion of the medical decision making process will be conducted by additional ED providers. TRAVEL OUTSIDE OF THE [place] IN LAST 30 DAYS: No - Related Data Allergies/Adverse Reactions: acetaminophen [From Percocet] Allergy (Verified 04/11/20 15:46) cefazolin Allergy (Verified 04/11/20 15:44) codeine Allergy (Verified 04/11/20 15:46) morphine Allergy (Verified 04/11/20 15:45) oxycodone [From Percocet] Allergy (Verified 04/11/20 15:46) Penicillins Allergy (Verified 04/11/20 15:45) Past Medical History - Past Medical History Cardiac Medical History: Reports: Hx Atrial Fibrillation, Hx Coronary Artery Disease, Hx DVT - remains on coumadin, Hx Heart Attack, Hx Hypertension Pulmonary Medical History: Reports: Hx Asthma, Hx COPD Denies: Hx Bronchitis, Hx Pneumonia Neurological Medical History: Reports: Hx Seizures - DUE TO MEDICATIONS. 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, history of glomerulonephritis but not biopsy-proven, Hx Hemodialysis GI Medical History: Reports: Hx Gastroesophageal Reflux Disease Musculoskeltal Medical History: Reports Hx Arthritis Psychiatric Medical History: Reports: Hx Depression Past Surgical History: Reports: Hx Abdominal Surgery, Hx Herniorrhaphy - Abdominal hernia, Hx Orthopedic Surgery - Left knee, Hx Vascular Surgery - Previous PermCath placement, Other - Parathyroidectomy; exploratory laparotomy with colon resection/colostomy - Immunizations Hx Diphtheria, Pertussis, Tetanus Vaccination: Yes Physical Exam - Vital signs Vitals: Temp Pulse Resp BP Pulse Ox 98.2 F 78 20 150/96 H 100 06/27/20 14:50 06/27/20 14:50 06/27/20 14:50 06/27/20 14:50 06/27/20 14:50 - General General appearance: Alert Notes: Left-sided facial swelling that extends to the left submandibular and infra auricular area on the left side Course - Vital Signs Vital signs: Temp Pulse Resp BP Pulse Ox 98.2 F 78 20 150/96 H 100 06/27/20 14:50 06/27/20 14:50 06/27/20 14:50 06/27/20 14:50 06/27/20 14:50
== END 2020-06-27 17:15 | disposition left against medical advice (07) ==
LOC: ER 14:42
DX: R22.0 Localized swelling, mass and lump, head (principal); I12.0 Hypertensive chronic kidney disease with stage 5 chronic kidney disease or end stage renal disease; N18.6 End stage renal disease; I48.91 Unspecified atrial fibrillation; Z99.2 Dependence on renal dialysis; Z86.718 Personal history of other venous thrombosis and embolism; Z79.01 Long term (current) use of anticoagulants
CPT/HCPCS: 99281